=== PATIENT | female | born 1950 ===

== ENCOUNTER 2024-11-04 07:00 | Inpatient (IN) | payer OTHER ==
[~2024-11-04] VITALS: Ht 157.5 cm; Wt 59.0 kg
[2024-11-04 09:32] VITALS: BP 133/73
[2024-11-04] MEDS ORDERED: SIMVASTATIN20 MG PO (09:32)
[2024-11-04 09:38] LABS: BASO % 0.4 % (0.1-1.2); EOS # 0.15 (0.04-0.54); EOS % 3.0 % (0.7-7.0); LYMPH # 1.52 (1.18-3.74); LYMPH % 30.2 % (19.3-53.1); MEAN PLATELET VOLUME 10.20 fl (9.4-12.4); MONO # 0.39 (0.24-0.82); MONO % 7.7 % (4.7-12.5); NEUT # 2.94 (1.56-6.13); NEUT % 58.3 % (34.0-71.1); RED CELL DISTRIBUTION WIDTH 12.4 % (11.6-14.4)
[2024-11-04 09:53] LABS: URINE APPEARANCE Clear; URINE BILIRRUBIN Negative (NEGATIVE); URINE BLOOD Negative; URINE COLOR Yellow; URINE GLUCOSE Negative (NEGATIVE); URINE KETONE Negative (NEGATIVE); URINE LEUKOCYTE Trace; URINE NITRATE Negative; URINE PROTEIN Negative (NEGATIVE); URINE UROBILINOGEN 0.2 E.U./dl
[2024-11-04 09:58] LABS: URINE BACTERIA 15.5 uL (0.0-1933); URINE EPITHELIAL CELLS 3.9 uL (0.0-38.8); URINE WBC 23.3 uL (0.0-23.2)
[2024-11-04 09:59] LABS: URINE CAST 0.14 uL (0.0-1.40); URINE RBC 1.9 uL (0.0-20.8)
[2024-11-04 10:01] LABS: INR 0.96
[2024-11-04 10:32] LABS: ALT/SGPT 18.0 U/L (12-78); AST/SGOT 19.0 U/L (15-37); BILIRUBIN TOTAL 0.35 mg/dL (0.3-1.2); BUN CREA RATIO 24.0 (7.0-25.0); CREATININE SERUM 0.88 mg/dL (0.55-1.02); GFR 62.47; GLOBULINA 3.0 G/DL (2.4-3.5); GLUCOSE FASTING 107.0 mg/dL (65-100); OSMOLALITY SERUM 290.0 MOSM/KG (275-295)
[2024-11-11] MEDS ORDERED: CEFAZOLIN SODIUM 1,000 MG VIAL ONE (07:40)
[2024-11-11] MEDS ORDERED: POVIDONE-IODINE 118 ML BOTT TOP ONE (08:31)
[2024-11-11] MEDS ORDERED: LIDOCAINE HCL 1%/EPINEPHRINE 20ML VIAL IJ ONE (08:58)
[2024-11-11] MEDS ORDERED: SUGAMMADEX SODIUM 200 MG/2 ML VIAL IV ONE (09:19)
[2024-11-11] MEDS ORDERED: ONDANSETRON HCL 2 MG/ML VIAL IV PRN (10:45)
[2024-11-11] MEDS ORDERED: RINGERS SOLUTION,LACTATED 1,000 ML IV SCH (10:45)
[2024-11-11] MEDS ORDERED: MORPHINE SULFATE 4 MG/ML CARTRIDGE IV PRN (11:00)
[2024-11-11] MEDS ORDERED: CEFAZOLIN SODIUM 1,000 MG VIAL IV SCH (12:00)
[2024-11-11] MEDS ORDERED: ONDANSETRON HCL 2 MG/ML VIAL ONE (12:18)
[2024-11-11] MEDS ORDERED: MORPHINE SULFATE 4 MG,MORPHINE SULFATE 2 MG IV PRN (12:45)
[2024-11-11 14:13] LABS: BASO % 0.2 % (0.1-1.2); EOS # 0.04 (0.04-0.54); EOS % 0.4 % (0.7-7.0); LYMPH # 0.96 (1.18-3.74); LYMPH % 8.6 % (19.3-53.1); MEAN PLATELET VOLUME 10.00 fl (9.4-12.4); MONO # 0.42 (0.24-0.82); MONO % 3.8 % (4.7-12.5); NEUT # 9.63 (1.56-6.13); NEUT % 86.6 % (34.0-71.1); RED CELL DISTRIBUTION WIDTH 12.4 % (11.6-14.4)
[2024-11-11 14:39] VITALS: BP 120/73
[2024-11-11 16:09] VITALS: BP 108/63
[2024-11-11] MEDS ORDERED: OxyCODONE HCL 5 MG TABLET (ROXICODONE) PO PRN (18:45)
[2024-11-12 00:03] VITALS: BP 98/61
[2024-11-12 05:00] VITALS: BP 93/58
[2024-11-12] MEDS ORDERED: IBU800 MG PO (07:00)
[2024-11-12] MEDS ORDERED: NEURONTIN300 MG PO (07:00)
[2024-11-12] MEDS ORDERED: CIPRO500 MG PO (07:02)
[2024-11-12 08:08] VITALS: BP 101/60
[2024-11-12] MEDS ORDERED: ENOXAPARIN SODIUM 40 MG/0.4 ML SYRINGE SUBCUTANEO SCH (09:00)
== END 2024-11-12 09:41 | disposition home or self-care (01) | DRG 743 ==
LOC: O/R 11-11 06:00 → SURH 11-11 07:00 → OB/GYN 11-11 14:31
PROVIDERS: ADMIT Obstetrics & Gynecology Gynecology; ATTEND Obstetrics & Gynecology Gynecology
PROC: 0JQC0ZZ Repair Pelvic Region Subcutaneous Tissue and Fascia, Open Approach (ICD-10-PCS; 2024-11-11)
PROC: 0USG0ZZ Reposition Vagina, Open Approach (ICD-10-PCS; 2024-11-11)
PROC: 0UT97ZZ Resection of Uterus, Via Natural or Artificial Opening (ICD-10-PCS; principal; 2024-11-11 07:00)
DX: N81.4 Uterovaginal prolapse, unspecified (principal); N84.0 Polyp of corpus uteri